=== PATIENT | female | born 1975 | race Two or more races ===

== ENCOUNTER 2017-05-14 12:19 | Emergency (ER) | payer OTHER ==
[~2017-05-14] VITALS: Ht 165.1 cm; Wt 56.7 kg
[2017-05-14 12:23] VITALS: BP 115/70
== END 2017-05-14 12:49 | disposition home or self-care (01) ==
LOC: ER 12:23
DX: S50.861A Insect bite (nonvenomous) of right forearm, initial encounter (principal); W57.XXXA Bitten or stung by nonvenomous insect and other nonvenomous arthropods, initial encounter; Y93.89 Activity, other specified; Y92.89 Other specified places as the place of occurrence of the external cause; Y99.8 Other external cause status
CPT/HCPCS: 99283; A4606; Z7610

== ENCOUNTER 2023-12-04 13:29 | Emergency (ER) | payer OTHER ==
[~2023-12-04] VITALS: Ht 165.1 cm; Wt 68.0 kg
[2023-12-04 14:23] VITALS: BP 108/73; TEMP 98.3
[2023-12-04] MEDS ORDERED: AMOX500C2 PO (14:34)
[2023-12-04] MEDS: AMOXICILLIN TRIHYDRATE 500 MG CAPSULE PO ONE (15:08)
[2023-12-04] MEDS ORDERED: AMOXICILLIN TRIHYDRATE 250 MG CAPSULE ONE (15:08)
[2023-12-04 15:16] VITALS: O2SAT 100
== END 2023-12-04 15:17 | disposition home or self-care (01) ==
LOC: ER 13:34
DX: H66.91 Otitis media, unspecified, right ear (principal)